=== PATIENT | female | born 1970 | race Caucasian/White ===

== ENCOUNTER → 2018-05-22 11:48 | Outpatient (CLI) | payer BC, SELFPAY ==
--- NOTE | 2018-05-22 11:56 | XR_ITS ---
XR chest 2V HISTORY: Fall on 05/20. Neck and chest pain. Nonsmoker ITS.REASON: S/P FALL 05/20,NECK PAIN,CHEST WALL PAIN ORDERING PHYSICIAN: Roddy Damon PATIENT AGE: 47 years Technique: PA and lateral chest COMPARISON: 11/09/2016 2 view CXR. FINDINGS: Lungs well expanded clear with no active disease. Some mild hyperexpansion heart, candis, mediastinal structures are satisfactory. Chest wall appears intact satisfactory ribs intact. T-spine intact. No acute findings. No significant change since prior studies. Small calcified granuloma less than 5 mm size anterior second interspace with small calcified hilar nodes right more so than left. No significant lung nodules. Normal pulmonary vascularity. . IMPRESSION stable chest. Lungs clear. Nothing definitely acute. .
--- NOTE | 2018-05-22 11:56 | XR_ITS ---
XR cervical spine 4V Ordering Physician: Roddy Damon Patient Age: 47 years: Female HISTORY: ITS.REASON: S/P FALL 05/20,NECK PAIN,CHEST WALL PAIN fall May 20 with anterior with neck pain and chest pain. TECHNIQUE: Five-view cervical spine series COMPARISON :. No previous relevant studies. FINDINGS Cervical spine intact with no fracture nor subluxation. Normal alignment. Prevertebral soft tissues appear normal. Open-mouth view show normal C1-C2 relationships... Dens intact Vertebral bodies intact and disc spaces are well-maintained. The neural foramen widely patent. Facets appear satisfactory. Small rudimentary cervical ribs at C7 noted bilateral. Measure only 12 mm on right & 11 mm on left. Apices the lungs are clear with onlyTrace apical pleural scarring on right. IMPRESSION: Cervical spine intact with no fracture nor subluxation. Normal alignment. Vertebral bodies and disc spaces well-maintained.. .
== END ==
PROVIDERS: PCP Internal Medicine; Visit Provider Internal Medicine
DX: M54.2 Cervicalgia (principal); R07.89 Other chest pain
CPT/HCPCS: 71046; 72050

== ENCOUNTER → 2018-06-23 15:39 | Outpatient (CLI) | payer BC, SELFPAY ==
--- NOTE | 2018-06-23 15:49 | MM_ITS ---
MM Dig screening mamm BI w/CAD CAD Screening COMPARISON: Digital mammograms with CAD 04/07/2017 and 02/18/2016 INDICATION: There is no personal or family history of breast cancer. There has been a previous cyst aspiration right breast. TECHNIQUE: Standard CC and MLO images were obtained. R2 CAD reviewed. FINDINGS: There is a markedly and diffusely dense and heterogenic parenchymal pattern definitely lessening the sensitivity of mammography. A dominant cystic structure in the subareolar region of the right breast seen on last years exam has somewhat decreased in size. There is no definite new or suspicious lesion in either breast and there are no suspicious microcalcifications. . Ultrasound performed at the same time as the previous mammogram showed multiple cystic structures in both breasts. There are few scattered benign-appearing microcalcifications in each breast. IMPRESSION: Markedly dense and heterogenic parenchymal pattern basically stable and unchanged from the previous exam BI-RADS Category: 2 Benign Finding(s) RECOMMENDED FOLLOW-UP: 1YR - 1 YEAR FOLLOW-UP (A letter has been sent to the patient regarding results of the study.)
--- NOTE | 2018-06-23 15:50 | US_ITS ---
US breast RT complete INDICATION: Follow-up breast cyst, one year follow-up dense breast on mammography ORDERING PHYSICIAN: Roddy Damon PATIENT AGE: 47 years COMPARISON: 04/07/2017 TECHNIQUE: Right breast ultrasound with axilla FINDINGS: There is a 15 x 10 mm cyst at 9:00 near the nipple. This previously measured 23 x 15 mm 16 x 12 mm cyst at 10:00 near the nipple which previously measured 25 x 9 mm. The 7 mm cyst at 11:00 previously 9 mm. An additional 6 mm cyst is present at 11:00. 12:00 there is a bilobular cyst at 1 cm not readily identified on the previous exam. No suspicious breast lesions are evident. Small nodes are present in the axilla IMPRESSION: Multiple breast cysts as described above BI-RADS Category: 2 Benign Finding(s) RECOMMENDED FOLLOW-UP: 1YR - 1 YEAR FOLLOW-UP (A letter has been sent to the patient regarding results of the study.)
--- NOTE | 2018-06-23 15:50 | US_ITS ---
US breast LT complete INDICATION: Follow-up breast cysts, one year follow-up with dense breast tissue mammographically ORDERING PHYSICIAN: Roddy Damon PATIENT AGE: 47 years COMPARISON: 04/07/2017 TECHNIQUE: Left breast ultrasound with axilla FINDINGS: There are multiple left breast cysts including an 8 mm cyst at 12:00 and a 12 mm cyst at 12:00, 6 mm cyst at 1:00, 10 mm cyst at 2:00, 33 x 14 mm septated cyst at 3:00. Previously this measured 22 mm. 20 x 12 mm cyst also at 3:00 previously measuring 22 x 18 mm 10 mm cyst at 4:00. A cluster of cysts or noted at 9:00 measuring a total of 35 x 9 mm. 9 mm cyst at 11:00. 14 mm cyst in the retroareolar region not identified on the previous exam. No suspicious solid nodules. IMPRESSION: Benign findings. Multiple left breast cysts as described above BI-RADS Category: 2 Benign Finding(s) RECOMMENDED FOLLOW-UP: 1YR - 1 YEAR FOLLOW-UP (A letter has been sent to the patient regarding results of the study.)
== END ==
PROVIDERS: PCP Internal Medicine; Visit Provider Internal Medicine
DX: Z12.31 Encounter for screening mammogram for malignant neoplasm of breast (principal); N60.01 Solitary cyst of right breast; N60.02 Solitary cyst of left breast
CPT/HCPCS: 76641; 77067

== ENCOUNTER → 2020-01-18 10:59 | Outpatient (CLI) | payer BC, SELFPAY ==
[2020-01-18 14:24] LABS: Coronavirus 19 IgG Antibody Negative (Negative); Coronavirus 19 IgM Antibody Negative (Negative)
== END ==
PROVIDERS: Visit Provider Internal Medicine Gastroenterology
DX: Z01.818 Encounter for other preprocedural examination (principal)
CPT/HCPCS: 36415; 86328

== ENCOUNTER 2020-01-21 10:30 | Day surgery (SDC) | payer BC, SELFPAY ==
[2020-01-16 13:11] VITALS: BMI 25.0
[2020-01-21 10:55] VITALS: BP 113/66; PULSE 77; RESP 18; TEMP 37.1; O2SAT 98
[2020-01-21 11:58] LABS: Urine Pregnancy, HCG Qual. Negative (Negative)
[2020-01-21 12:17] VITALS: O2SAT 98
--- NOTE | 2020-01-21 12:37 | P.PCN_ITS ---
[facility] Procedure Note Procedure Note:: Upper Endoscopy Procedure Report: Esophagogastroduodenoscopy with cold biopsies Endoscopost: Dominick Hernandez II, MD Referring Physician: Roddy Damon MD Date of Procedure: January 21, 2020 Equipment: Olympus GIF 180 standard upper endoscope Sedation: MAC sedation Indications: Mrs. Velez is a 49-year-old female who has had dyspepsia with epigastric abdominal discomfort and tightness with some bloating and gassiness. She reports a knotted up upper left side with rolling and tenderness. She states that this may occur more on an empty stomach. This especially occurs overnight. She did have cholecystectomy 30 years ago ([facility]). She reports nausea. She reports no early satiety or dysphagia. She does state that omeprazole and Carafate are not helping much. She does feel that stress may exacerbate her symptoms. She does report some bowel irregularity with constipation that alternates with loose/soft stools. She has some obstipation. This is her first upper endoscopy. Procedure: Prior to the procedure, a history and physical exam was performed, and patient's medications and allergies were reviewed. The risks, benefits and alternatives of the sedation and procedure were discussed with the patient. All questions were answered and informed consent was obtained. The patient was brought to the procedure room. Patient identification and proposed procedure were verified by the physician and the nurse. The patient was placed in a left lateral decubitus position and the scope was passed under direct vision. Throughout the procedure, the patient's blood pressure, pulse, and oxygen saturations were monitored continuously. The upper GI endoscopy was accomplished without difficulty. The patient tolerated the procedure well. Findings: The scope was passed directly into the upper esophagus and advanced to the third portion of the duodenum. The post bulbar duodenum and duodenal bulb were normal with normal mucosa and conniventes. Cold biopsies were taken from the post bulbar duodenum and duodenal bulb to rule out celiac disease. The scope was withdrawn through a normal duodenal bulb and pylorus into the stomach. There was evidence of linear erythema of the antrum and body consistent with linear reactive gastropathy. The remainder of the antrum, body and fundus of the stomach were grossly normal. Upon retroflexion there was no hiatal hernia. 2 biopsies were taken in the antrum and along the lesser curvature for histology to rule out gastritis and/or H pylori. The scope was then withdrawn into the esophagus. There was no evidence of reflux esophagitis or Colon's. A biopsy was taken at the GE junction to rule out intestinal metaplasia. The remainder of the esophageal mucosa was normal. Impression: 1. Nonerosive GERD 2. Linear reactive gastropathy Plan: I do feel that the patient has functional dyspepsia and some functional bowel disease. We will discuss dietary measures and treatment options. I would recommend colonoscopy as well.
[2020-01-21 12:40] VITALS: BP 113/81; PULSE 83; RESP 18; TEMP 36.3; O2SAT 96
[2020-01-21 12:50] VITALS: BP 107/73; PULSE 77; RESP 18; O2SAT 97
[2020-01-21 13:01] VITALS: BP 110/72; PULSE 62; RESP 18; O2SAT 100
[2020-01-21 13:44] VITALS: BP 125/89; PULSE 71; RESP 18; O2SAT 100
== END 2020-01-21 13:44 | disposition home or self-care (01) ==
LOC: OUTP 10:31
PROVIDERS: PCP Internal Medicine; Visit Provider Internal Medicine Gastroenterology
PROC: 0DJ08ZZ Inspection of Upper Intestinal Tract, Via Natural or Artificial Opening Endoscopic (ICD-10-PCS; CPT 43235; principal; 2020-01-21 11:30)
DX: K21.9 Gastro-esophageal reflux disease without esophagitis (principal); K31.9 Disease of stomach and duodenum, unspecified
CPT/HCPCS: 43239; 81025

== ENCOUNTER → 2020-03-27 10:55 | Outpatient (CLI) | payer BC, SELFPAY ==
[2020-03-27 12:40] LABS: Coronavirus 19 IgG Antibody Negative (Negative); Coronavirus 19 IgM Antibody Negative (Negative)
== END ==
PROVIDERS: Visit Provider Internal Medicine Gastroenterology
DX: Z01.89 Encounter for other specified special examinations (principal); Z12.11 Encounter for screening for malignant neoplasm of colon
CPT/HCPCS: 36415; 86328

== ENCOUNTER 2020-03-28 07:28 | Day surgery (SDC) | payer BC, SELFPAY ==
[2020-03-20 10:08] VITALS: BMI 23.5
[2020-03-28] VITALS (8 sets, daily range): BP systolic 100–116; BP diastolic 59–84; PULSE 62–103; RESP 16–18; TEMP 36.6–36.7; O2SAT 97–100
[2020-03-28 07:56] LABS: HCG Qualitative, Serum Negative (Negative)
--- NOTE | 2020-03-28 08:04 | P.PN_ITS ---
[facility] Anesthesia Checklist - Patient Identification Patient Identification: Arm Band - Structural Data Admitted From: Home Planned Operative Procedure/s: colonoscopy Consent for Planned Operative Procedure(s) Verified: Yes Verified Documents: Surgical Consent, History and Physical - NPO Status Verified Time NPO: 00:00 - Additional verifications Anesthesia Reactions: No - Airway Assessment C-Spine Mobility Assessed: Yes (mp2) TMJ Mobility Assessed: Yes Dentition: Good Dentition - Neurological Assessment Level of Consciousness: Awake, Alert - Anesthesia Plan Anesthesia Risk discussed: Yes Anesthesia Plan: Verified ASA Class: II Anesthesia Type: MAC [facility] History I have reviewed the patient's past medical history: Yes Medical History: Reports:: Asthma, Gastroesophageal Reflux Disease(GERD), Renal Disease (polycystic kidney disease) Denies:: Cancer, Diabetes Mellitus Type 1, Diabetes Mellitus Type 2, Internal Pacemaker, MRSA, Seizures *Have you ever received a pneumonia vaccine?: Yes *Have you received a flu vaccine this season?: Yes Other Medical History: Reports: Anemia (hx of) Anesthesia experience/problems:: nac Laterality Cases: Bilateral: Tonsillectomy Other Surgeries: Yes: Cholecystectomy, , Tubal Ligation. No: Pacemaker Amputation: No - *Social History Last grade of school completed: Advanced degree Alcohol Intake: never Substance Use Type: denies use *Occupational Status:: employed Housing: house Household Members: spouse *Travel in the last 8 weeks: None Family Hx:: No significant family history
--- NOTE | 2020-03-28 08:07 | P.PCN_ITS ---
[facility] Procedure Note Procedure Note:: Colonoscopy Procedure Report: Colonoscopy with cold snare polypectomy Endoscopist: Dominick Hernandez II, MD Referring physician: Roddy Damon MD Date of Procedure: March 28, 2020 Equipment: Olympus 180 variable stiffness pediatric colonoscope Sedation: MAC sedation Indication: Mrs. Velez is a 49-year-old female who is here for screening colonoscopy. The patient previously was having mid upper abdominal discomfort, tightness and bloating especially in the left upper side. She had gallbladder removal 30 years ago. She was having nausea. The patient did have an EGD on January 21, 2020 that showed nonerosive GERD and linear reactive gastropathy. The patient has been on MiraLAX plus Konsyl (fiber bowel regimen) and buspirone. Most of her symptoms have resolved and she is doing better. She still has some nausea. She reports no rectal bleeding, abdominal pain, weight loss or change in bowel habits. She reports no family history of colon cancer. This is her first colonoscopy. Procedure: Prior to the procedure, a history and physical exam was performed, and patient's medications and allergies were reviewed. The risks, benefits and alternatives of the sedation and procedure were discussed with the patient. All questions were answered and informed consent was obtained. The patient was brought to the procedure room. Patient identification and proposed procedure were verified by the physician and the nurse. The patient was placed in a left lateral decubitus position and the scope was passed under direct vision. Throughout the procedure, the patient's blood pressure, pulse, and oxygen saturations were monitored continuously. The colonoscopy was accomplished without difficulty. The patient tolerated the procedure well. Findings: On digital rectal examination there was normal rectal tone. There were no external hemorrhoids. The colonoscope was introduced through the anal canal to the rectum and advanced to the cecum. The ileocecal valve and appendiceal orifice were identified. The scope was advanced a short distance into the ileum which appeared grossly normal. The scope was then withdrawn into the colon. There were 3 diminutive colon polyps (cecum x2 (3 and 4 mm) and sigmoid x1 (3 mm)) which were all removed via cold snare polypectomy. The remaining cecum, as cending, transverse, descending, sigmoid and rectum were grossly normal. There were no other mucosal abnormalities identified. Upon retroflexion within the rectum there were grade 1 internal hemorrhoids.The preparation was excellent throughout with [place] Preparation Score of 9. The cecal time was 12 minutes. Impression: 1. Diminutive colonic polyps x3 2. Grade 1 internal hemorrhoids Plan: I will follow up the polyp pathology and recommend repeat colonoscopy again in 5-10 years based upon the polyp histology. I would encourage fiber supplementation on a long-term daily maintenance basis.
== END 2020-03-28 10:00 | disposition home or self-care (01) ==
LOC: OUTP 07:28
PROVIDERS: PCP Internal Medicine; Visit Provider Internal Medicine Gastroenterology
PROC: 0DJD8ZZ Inspection of Lower Intestinal Tract, Via Natural or Artificial Opening Endoscopic (ICD-10-PCS; CPT 45378; principal; 2020-03-28 08:00)
DX: Z12.11 Encounter for screening for malignant neoplasm of colon (principal); K63.5 Polyp of colon; K64.0 First degree hemorrhoids; Z90.49 Acquired absence of other specified parts of digestive tract; K21.9 Gastro-esophageal reflux disease without esophagitis; K31.9 Disease of stomach and duodenum, unspecified; J45.909 Unspecified asthma, uncomplicated; N28.9 Disorder of kidney and ureter, unspecified; Z88.0 Allergy status to penicillin; Z79.890 Hormone replacement therapy; Z79.899 Other long term (current) drug therapy
CPT/HCPCS: 45385; 84703

== ENCOUNTER 2020-05-03 10:10 | Emergency (ER) | payer BC, SELFPAY ==
[2020-05-03 10:26] VITALS: BP 139/89; PULSE 100; RESP 18; O2SAT 100; BMI 23.5
--- NOTE | 2020-05-03 10:33 | HMH.EDUTC ---
[facility] [place] Disposition Clinical Impression: Encounter for laboratory testing for COVID-19 virus Sinusitis Qualifiers: Sinusitis location: unspecified location Chronicity: unspecified Qualified Code(s): J32.9 - Chronic sinusitis, unspecified Disposition: Home, Self-Care Condition on Discharge: Good Instructions: Sinusitis, Sinus Headache, DI for Sinusitis Additional Instructions: *Monitor Temp, Over the counter Motrin or Tylenol as directed/as needed Tylenol every 4 hours and Motrin every 6 hours (as long as your family doctor has told you that you can take it) for fever or pain. and straight to ER if unable to lower temp less than 101.0 after medication given *Warm salt water gargles may help to soothe the throat *Throat Lozenges *Warm fluids like tea with honey may help to soothe the throat *Sleep elevated *Humidifier/Vaporizer *Flonase 2 sprays in each nostril daily but be aware that it may take 2-3 days before you notice improvement Follow up IMMEDIATELY for new or worsening symptoms or no Noticeable improvement over the next 48-72 hours. 911 for difficulty breathing or swallowing You was tested for today for COVID19 your test result should be back in the next 24-48 hours, you may call to the [facility] tomorrow to see if your test results are back and the result [phone] You was given a handout with instructions for Self Quarantine and Self isolation for while you wait on test results and what to do if they are positive If you are positive the Health Dept will be contacting you also Prescriptions: Azithromycin [Z-Devyn 250mg Tab] 250 mg PO DIRECTED #6 tab Transmission Status: Pending to [facility] Ondansetron [Zofran 4mg ODT] 4 mg PO TIDP PRN #9 tab PRN Reason: Nausea Transmission Status: P[facility] to [facility] Referrals: Roddy Damon [Primary Care Provider] - Forms: Work/School Release Time of Disposition: 10:41 Medical Decision Making - Huber Inquiry Pt receiving controlled substance: No Huber was queried for this patient: No Vital Signs: 05/03/20 10:26 Pulse Rate [Radial] 100 H Respiratory Rate 18 Blood Pressure [Right Arm] 139/89 Blood Pressure Mean [Right Arm] 105 Blood Pressure Source [Right Arm] Automatic Cuff Blood Pressure Position [Right Arm] Sitting 02 Sat by Pulse Oximetry 100 Oxygen Delivery Method Room Air Orders (Tests/Meds): ORDERS Category Date Time Status Covid-19 Nasal PCR ([facility]) Routine Lab 05/03/20 10:25 Received [facility] [place] HPI - General Stated complaint: covid test Time Seen by Provider: 05/03/20 10:33 Mode of Arrival: Ambulatory Source of Information: Patient Limitations: No Limitations Description of Symptoms (Recalled from Triage Doc. 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] Tramadol HCl [Tramadol 50mg 50 mg PO BID 01/16/20 03/20/20 Tab] ondansetron HCL [Zofran 4mg Tab*] 4 mg PO DAILY PRN 01/16/20 03/20/20 Buspirone HCl [Buspar 5mg tablet] 5 mg PO HS 03/20/20 03/20/20 Previous Rx's Medication Instructions Recorded Azithromycin [Z-Devyn 250mg Tab] 250 mg PO DIRECTED #6 tab 05/03/20 Ondansetron [Zofran 4mg ODT] 4 mg PO TIDP PRN #9 tab 05/03/20 Allergies Allergy/AdvReac Type Severity Reaction Status Date / T
[2020-05-03 10:45] VITALS: BP 139/89; PULSE 100; RESP 18; TEMP 36.7; O2SAT 100
== END 2020-05-03 10:48 | disposition home or self-care (01) ==
PROVIDERS: Emergency Provider Nurse Practitioner; PCP Internal Medicine
DX: Z20.828 Contact with and (suspected) exposure to other viral communicable diseases (principal); J32.9 Chronic sinusitis, unspecified; K21.9 Gastro-esophageal reflux disease without esophagitis; J45.909 Unspecified asthma, uncomplicated; Z90.49 Acquired absence of other specified parts of digestive tract
CPT/HCPCS: 99201; U0003

== ENCOUNTER 2020-05-11 18:34 | Emergency (ER) | payer BC, SELFPAY ==
[2020-05-11 19:16] VITALS: BP 106/79; PULSE 94; RESP 20; TEMP 37.2; O2SAT 96; BMI 25.0
[2020-05-11 19:25] LABS: UTC Influenza A Antigen Positive (Negative); UTC Influenza B Antigen Negative (Negative); UTC Strep Screen (Rapid) Negative (Negative)
--- NOTE | 2020-05-11 19:33 | HMH.EDUTC ---
[facility] Clinical Impression: Influenza A Disposition: Home, Self-Care Condition on Discharge: Good Instructions: Influenza, DI for Influenza -- Adult, Oseltamivir Additional Instructions: Drink plenty of fluids. Take tylenol for pain or fever. Return if you begin to have difficulty breathing. Follow up with your regular doctor. GO TO THE ER FOR ANY WORSENING SYMPTOMS Prescriptions: Ondansetron [Zofran 4mg ODT] 4 mg PO Q8HP PRN #20 tab.rapdis PRN Reason: Nausea Transmission Status: [facility] to [facility] Oseltamivir Phosphate [Tamiflu 75mg Capsule] 75 mg PO BID #10 cap Transmission Status: Pending to [facility] Referrals: Roddy Damon [Primary Care Provider] - Time of Disposition: 19:35 Medical Decision Making - Medical Records Medical records reviewed: No: I reviewed the patient's medical records. - Huber Inquiry Pt receiving controlled substance: No Vital Signs: 05/11/20 19:16 Temperature 98.9 F Temperature Source Oral Pulse Rate [Right Brachial] 94 H Respiratory Rate 20 Blood Pressure [Right Arm] 106/79 L Blood Pressure Mean [Right Arm] 88 Blood Pressure Source [Right Arm] Automatic Cuff Blood Pressure Position [Right Arm] Sitting 02 Sat by Pulse Oximetry 96 Oxygen Delivery Method Room Air - Lab Data Lab results reviewed: Yes: I reviewed the patient's lab results. Lab Results 05/11/20 19:23: Influenza Type A Ag Positive A, Influenza Type B Ag Negative 05/11/20 19:23: Strep Scn Rapid Clinic Negative Orders (Tests/Meds): ORDERS Category Date Time Status Strep Screen Confirmation Stat Micro 05/11/20 19:23 [place] [facility] [place] - General Stated complaint: Headaces, sore thorat, chills, Time Seen by Provider: 05/11/20 19:33 Mode of Arrival: Ambulatory Source of Information: Patient Limitations: No Limitations Description of Symptoms (Recalled from Triage Doc. by RN): PATIENT C/O BODY ACHES, CHILLS, HEADACHE, SCRATCHY THROAT, DRY COUGH. STATES SHE WAS SEEN IN [facility] LAST TUESDAY AND WAS GIVEN A Z-PACK; SHE FELT BETTER A FEW DAYS AFTER SHE STARTED THE Z-PACK BUT STATES HER SYMPTOMS RETURNED YESTERDAY HEENT Symptoms (Recalled from RN notes): No Resp Symptoms (Recalled from RN notes): No Skin Symptoms (Recalled from RN notes): No MS Symptoms (Recalled from RN notes): No Functional Status (Recalled from RN notes): WNL - History of Present Illness Provider Complaint: She states that since yesterday she has had body aches, cough, mild chest tightness, and felt very bad. She was sick last week but she got completely better until this episode started. She did have a flu shot this year. - Related Data Home Medications Medication Instructions Recorded Confirmed Tramadol HCl [Tramadol 50mg 50 mg PO BID 01/16/20 05/11/20 Tab] Previous Rx's Medication Instructions Recorded Ondansetron [Zofran 4mg ODT] 4 mg PO TIDP PRN #9 tab 05/03/20 Ondansetron [Zofran 4mg ODT] 4 mg PO Q8HP PRN #20 tab.rapdis 05/11/20 Oseltamivir Phosphate [Tamiflu 75 mg PO BID #10 cap 05/11/20 75mg Capsule] Allergies Allergy/AdvReac Type Severity Reaction Status Date / Time Penicillins Allergy Verified 03/20/20 10:02 - Worker's Comp Is this a Worker's Comp case?: No [facility] History - Hepatitis A Screen Drug use history?: No High risk sexual behaviors?: No History of sexually transmitted infection?: No Currently employed?: No Childcare worker?: No Do you have indoor plumbing?: Yes Do you have electricity?: Yes Attestation statement:: This patient has been screened for Hepatitis A risk factors. I have reviewed the patient's past medical history: Yes Medical History: Reports:: Asthma, Gastroesophageal Reflux Disease(GERD), Renal Disease (polycystic kidney disease) Denies:: Cancer, Diabetes Mellitus Type 1, Diabetes Mellitus Type 2, Internal Pacemaker, MRSA, Seizures Other Medical History: Reports: Anemia (hx of) Latera
[2020-05-11 19:55] VITALS: BP 106/79; PULSE 94; RESP 20; TEMP 37.2; O2SAT 96
[2020-05-13 13:21] LABS: Covid-19 Nasal PCR Sendout Lex Positive
--- NOTE | 2020-05-13 13:55 | PC.NURSE ---
PT CALLED AND NOTIFIED OF POSITIVE COVID RESULT
== END 2020-05-11 20:00 | disposition home or self-care (01) ==
PROVIDERS: Emergency Provider Nurse Practitioner Family; PCP Internal Medicine
DX: U07.1 COVID-19 (principal); J10.1 Influenza due to other identified influenza virus with other respiratory manifestations; J45.909 Unspecified asthma, uncomplicated; K21.9 Gastro-esophageal reflux disease without esophagitis; Z90.49 Acquired absence of other specified parts of digestive tract; Z79.899 Other long term (current) drug therapy
CPT/HCPCS: 87804; 87880; 99202; U0004

== ENCOUNTER → 2020-07-11 10:59 | Outpatient (CLI) | payer BC, SELFPAY ==
--- NOTE | 2020-07-11 11:06 | XR_ITS ---
PROCEDURE: XR CHEST 2V CLINICAL HISTORY: PALPATATIONS, EXTREME FATIQUE, COUGH, HX OF COVID 19 COMPARISON: CR CXR CHEST(2 VIEWS-NOT PORTABLE) from 03/19/2015 CR CXR CHEST(2 VIEWS-NOT PORTABLE) from 11/09/2016 CR CXR2V XR chest 2V from 05/22/2018 FINDINGS: The cardiomediastinal silhouette and pulmonary vascularity are within normal limits. The lungs are clear without infiltrates, suspicious nodules, or pleural effusions. No acute bony abnormalities. IMPRESSION: No acute findings. Dictated by: Abdiel Benson MD 07/11/2020 11:21 Abdiel Benson MD in [place] 07/11/2020 11:21
[2020-07-11 11:59] LABS: Basophils % 0.9 % (0.1-2.0); Eosinophils % 0.6 % (0.1-12.0); Hematocrit 41.6 % (37.0-47.0); Hemoglobin 13.4 g/dL (12.2-16.2); Lymphocytes # 0.8 K/mm3 (0.7-4.5); Lymphocytes % 20.3 % (10-50); Mean Corpuscular HGB Conc 32.3 g/dL (31.8-35.4); Mean Corpuscular Hemoglobin 29.1 pg (27.0-31.2); Mean Corpuscular Volume 89.9 fl (81-99); Mean Platelet Volume 7.8 fl (7.4-10.4); Monocytes # 0.5 K/mm3 (0.1-1.0); Monocytes % 11.5 % (1.7-9.3); Neutrophils # 2.7 K/mm3 (1.8-7.8); Neutrophils % 66.7 % (37.0-80.0); Platelet Count 265 K/mm3 (142-424); Red Blood Count 4.62 M/mm3 (4.20-5.40); Red Cell Distribution Width 14.1 % (11.5-17.5)
--- NOTE | 2020-07-11 12:00 | ECG_ITS ---
APPROVED REPORT Exam: Resting ECG HR:81 bpm ECG Measurements Heart Rate 81 AXES HI 146 P 54 QRSd 70 QRS 39 QT 366 T 50 QTc 425 Conclusion Normal sinus rhythm Normal ECG Electronically signed by : Roddy Damon, 07/15/2020 13:44:51
[2020-07-11 12:08] LABS: Alanine Aminotransferase 55 U/L (12-78); Albumin Level 4.6 g/dl (3.5-5.0); Albumin/Globulin Ratio 1.4 (1.1-1.8); Alkaline Phosphatase 68 U/L (38-126); Anion Gap 11.6 mEq/L (5-15); Aspartate Amino Transferase 60 U/L (14-36); Bilirubin,Total 0.2 mg/dl (0.2-1.3); Blood Urea Nitrogen 6 mg/dl (7-17); Calcium 9.7 mg/dl (8.4-10.2); Carbon Dioxide 31 mmol/L (22.0-30.0); Chloride 97 mmol/L (98-107); Estimated Glomerular Filt Rate 107 ml/min (>60); GFR (African American) 129 ML/MIN (>60); Globulin 3.4 g/dL (1.3-3.2); Glucose 105 mg/dl (74-100); Potassium 4.6 mmoL/L (3.5-5.1); Sodium 135 mmol/L (136-145)
[2020-07-11 12:14] LABS: D-Dimer 1.03 ug/mL (0.0-0.5)
[2020-07-11 12:25] LABS: Erythrocyte Sedimentation Rate 24 mm/hr (0-20)
[2020-07-11 12:34] LABS: Free T4 (Free Thyroxine) 0.77 ng/dl (0.78-2.19)
[2020-07-11 12:41] LABS: Thyroid Stimulating Hormone 0.85 uIU/mL (0.465-4.68)
== END ==
PROVIDERS: PCP Internal Medicine; Visit Provider Internal Medicine
DX: R00.2 Palpitations (principal); R53.83 Other fatigue; R05 Cough; Z86.16 Personal history of COVID-19
CPT/HCPCS: 36415; 71046; 80053; 84439; 84443; 85025; 85378; 85651; 93005; 93225; 93226

== ENCOUNTER → 2020-07-15 10:55 | Outpatient (CLI) | payer BC, SELFPAY ==
--- NOTE | 2020-07-15 | CA_ITS ---
APPROVED REPORT EXAM: Comprehensive 2D, Doppler, and color-flow Echocardiogram Zipper Cutter: Vidhi Malone CRT Ht: 5 ft 7 in Wt: 160lbs BSA: 1.84 BP: 106/79 mmHg Indications: Covid 19 in Nov heart pounding and SOB and fatigue since then. Palpitations, Fatigue, GERD, Asthma 2D Dimensions LVOT 1.93 cm (M/F) 1.5-2.5 LVEF (Garcia's) 54.70 % LV Volume 86.80 mL M-Mode Dimensions RVDd 2.67 cm (0.9-2.6) LA Diam 2.87 cm (1.9-4.0) LVDd 4.34 cm (3.5-5.7) Ao Diam 3.57 cm (2.0-3.7) LVDs 2.95 cm (3.5-5.7) IVSd 1.25 cm (0.6-1.1) PWd 0.83 cm (0.6-1.1) EF (Teich) 60.40% FS 32.00% EDV (Teich) 84.90 mL ESV (Teich) 33.60 mL LV Diastology E Decel Time 263.00 (160-240 msec) E/A Ratio 1.16 MED E' 9.90 (< 7 cm/sec) MED A' 8.20 cm/s E'/MED E' Ratio 8.86 (>14) LAT E' 12.90 (<10 cm/sec) LAT A' 11.20 cm/s E/LAT E' Ratio 6.80 (>14) Aortic Valve AO Peak GR. 3.50 mmHg Mitral Valve MV E Max Kvng. 88.00 (40-130 cm/s) MV A Velocity 75.00 (40-130 cm/s) E/A Ratio 1.16 MV Decel. Time 263.00 (160-240 ms) MV PHT 77.00 ms Pulmonary Valve PV Peak Velocity 71.00 (50-150 cm/s) Tricuspid Valve TR P. Velocity 190.00 cm/s RAP Estimate 10.00 mmHg RVSP 24.40 mmHg Left Ventricle Left atrium is normal size, left ventricle is normal size, there is no concentric left ventricular hypertrophy, visually estimated ejection fraction 55% with no regional wall motion abnormality, diastolic parameters are within normal range. Right Ventricle Right atrium and right ventricle are normal size and contractility. Aortic Valve Aortic valve is grossly normal, there is no aortic stenosis or aortic insufficiency. Mitral Valve Mitral valve is grossly normal, there is no mitral stenosis, there is trace mitral regurgitation. Tricuspid Valve Tricuspid valve grossly normal, there is trace tricuspid regurgitation, tricuspid regurgitation jet velocity is inadequate for calculation of the right ventricular systolic pressure. Pulmonic Valve Pulmonic valve is poorly visualized. Great Vessels Aortic root is normal size. Pericardium No significant pericardial effusion noted. Conclusion 1. Normal left ventricular size, preserved left ventricular systolic function, visually estimated ejection fraction 55% with no regional wall motion abnormality, diastolic parameters are within normal range. 2. Trace mitral and tricuspid regurgitation. 3. No significant pericardial effusion noted. Electronically signed by : Silviano Stark, 07/15/2020 20:21:47
--- NOTE | 2020-07-15 11:46 | CT_ITS ---
PROCEDURE: CT ANGIO CHEST CLINCIAL INDICATION: CHEST PAIN, EXTREME FATIGUE Covid+ May 11, 2020 Continued fatigue, soa, palpitations COMPARISON: CR XR CHEST 2V from 07/11/2020 TECHNIQUE: IV Contrast: 70ML Isovue 370 Axial images obtained with sagittal and coronal reformats. All CT scans at the facility use one or more dose reduction, viz: automated exposure control, ma/kV adjustment per patient size (including targeted exams where dose is matched to indication, i.e. head), or iterative reconstruction technique. FINDINGS: HEART AND MEDIASTINAL STRUCTURES: No evidence of pulmonary embolus, aortic aneurysm, or aortic dissection. LUNGS AND PLEURAL SPACES: There is evidence of old granulomatous disease. There are few faint 3 mm nodules in both upper lobes. These are ill-defined. In addition, there is mild biapical scarring. A 6 mm nodules present in the right apex posteriorly and a 4 mm nodule in the right apex along with apical scarring. There is a 3 mm nodule in the right perihilar region. There is mild bronchial thickening. No effusions or infiltrates. BONY STRUCTURES: No acute bony abnormalities apparent. UPPER ABDOMEN: Several small hypodensities are present within the liver and may be due to small hepatic cyst. There is a small left renal cyst at 1.5 cm and an additional left renal cyst laterally at 2 cm. ADDITIONAL FINDINGS: No other significant abnormalities. IMPRESSION: 1. No evidence of pulmonary embolus, aortic aneurysm, or aortic dissection. 2. There are nonspecific small ill-defined nodular opacities in the lung apices. These may be inflammatory or infectious. 3. In addition there is some mild biapical scarring with 2 right apical nodules in 1 right perihilar nodule. Consider 3-6 month follow-up to confirm stability. 4. Hepatic and left renal cysts Dictated by: Abdiel Benson MD 07/16/2020 14:57 Abdiel Benson MD in [place] 07/16/2020 14:57
== END ==
PROVIDERS: PCP Internal Medicine; Visit Provider Internal Medicine
DX: R07.9 Chest pain, unspecified (principal); R00.2 Palpitations; R53.83 Other fatigue
CPT/HCPCS: 71275; 93306; Q9967

== ENCOUNTER 2020-10-18 21:42 | Emergency (ER) | payer BC, SELFPAY ==
[2020-10-18 21:58] VITALS: BP 130/92; PULSE 105; RESP 20; TEMP 36.8; O2SAT 99; BMI 27.2
--- NOTE | 2020-10-18 22:06 | CT_ITS ---
PROCEDURE INFORMATION: Exam: CT Abdomen And Pelvis With Contrast Exam date and time: 10/18/2020 10:06 PM Age: 49 years old Clinical indication: Patient HX: Right hip pain for 1 day TECHNIQUE: Imaging protocol: Computed tomography of the abdomen and pelvis with contrast. Radiation optimization: All CT scans at this facility use at least one of these dose optimization techniques: automated exposure control; mA and/or kV adjustment per patient size (includes targeted exams where dose is matched to clinical indication); or iterative reconstruction. Contrast material: ISOVUE; Contrast volume: 75 ml; Contrast route: IV; COMPARISON: CT HIP RT WO CON 10/18/2020 11:19 PM FINDINGS: Liver: Multiple cystic structures of the liver are present the largest measures 2.2 cm at the inferior aspect of the right hepatic lobe with internal density of 8 Hounsfield units. Gallbladder and bile ducts: There are surgical clips within the gallbladder fossa. CBD measures 7 mm in diameter. Mild biliary intrahepatic biliary dilatation incidentally noted. Pancreas: Normal. No ductal dilation. Spleen: Multiple calcific densities spleen are likely related to prior granulomatous process. Adrenal glands: Normal. No mass. Kidneys and ureters: Multiple renal cysts seen bilaterally largest is at the left renal midpole measuring 1.9 cm in diameter with internal density of 13 Hounsfield units compatible with multiple Bosniak 2 cysts requiring no follow-up. Stomach and bowel: Unremarkable. No obstruction. No mucosal thickening. Appendix: No evidence of appendicitis. Intraperitoneal space: Unremarkable. No free air. No significant fluid collection. Vasculature: Unremarkable. No abdominal aortic aneurysm. Lymph nodes: Unremarkable. No enlarged lymph nodes. Urinary bladder: Unremarkable as visualized. Reproductive: Left-sided tubal ligation clip in expected location. Right-sided tubal ligation clips at the posterior cul-de-sac, not in a functional location. Bones/joints: Moderate size right greater than left marginal osteophytes of the femoral heads compatible with moderate osteoarthrosis of the hips. Soft tissues: Normal. IMPRESSION: Left-sided tubal ligation clip in expected location. Right-sided tubal ligation clip at the posterior cul-de-sac, not in a functional location. 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 COMMENTS: Consistent with the [employer]'s Incidental Findings Committee white paper (J Am Ernesto Radiol 2018): Any incidental renal lesion less than 1 cm or classified as too small to characterize, or any incidental cystic renal lesion characterized as simple-appearing, is likely benign. No follow-up imaging is recommended for these lesions per consensus recommendations based on imaging criteria.
--- NOTE | 2020-10-18 22:06 | CT_ITS ---
PROCEDURE INFORMATION: Exam: CT Lumbar Spine Without Contrast Exam date and time: 10/18/2020 10:06 PM Age: 49 years old Clinical indication: Patient HX: Right hip pain for 1 day TECHNIQUE: Imaging protocol: Computed tomography images of the lumbar spine without contrast. Radiation optimization: All CT scans at this facility use at least one of these dose optimization techniques: automated exposure control; mA and/or kV adjustment per patient size (includes targeted exams where dose is matched to clinical indication); or iterative reconstruction. COMPARISON: No relevant prior studies available. FINDINGS: Vertebrae: L3-L4 broad-based posterior disc protrusion with facet osteophytosis results in mild bilateral neural foraminal stenosis without spinal canal stenosis. L1-L2: No significant disc protrusion. No severe spinal canal stenosis. No significant neural foraminal narrowing. L2-L3: L2-L3 broad-based posterior disc protrusion with mild osteophytosis results in mild bilateral neural foraminal stenosis without spinal canal stenosis. L3-L4: No significant disc protrusion. No severe spinal canal stenosis. No significant neural foraminal narrowing. L4-L5: L4-L5 broad-based posterior disc protrusion results in mild bilateral neural foraminal stenosis without spinal canal stenosis. L5-S1: No significant disc protrusion. No severe spinal canal stenosis. No significant neural foraminal narrowing. Reproductive: Left-sided tubal ligation in good position. Right-sided tubal ligation clip at the posterior cul-de-sac, not in a functional location. Soft tissues: Unremarkable. IMPRESSION: Multilevel discogenic degenerative changes of the lumbar spine resulting in multilevel mild neural foraminal stenosis as described above.
--- NOTE | 2020-10-18 22:06 | CT_ITS ---
PROCEDURE INFORMATION: Exam: CT Right Lower Extremity Without Contrast, Hip Exam date and time: 10/18/2020 10:06 PM Age: 49 years old Clinical indication: Hip; Right; Patient HX: Pain for 1 day TECHNIQUE: Imaging protocol: CT of the Right lower extremity without contrast was performed. Exam focused on the hip. Radiation optimization: All CT scans at this facility use at least one of these dose optimization techniques: automated exposure control; mA and/or kV adjustment per patient size (includes targeted exams where dose is matched to clinical indication); or iterative reconstruction. COMPARISON: No relevant prior studies available. FINDINGS: Bones/joints: Moderate marginal osteophytosis of the femoral head is present. Soft tissues: Normal. IMPRESSION: Moderate right hip osteoarthritis.
[2020-10-18 22:22] LABS: Basophils # 0.1 K/mm3 (0-0.2); Basophils % 0.5 % (0.1-2.0); Eosinophils # 0.1 K/mm3 (0.0-0.4); Eosinophils % 0.9 % (0.1-12.0); Hematocrit 37.5 % (37.0-47.0); Hemoglobin 12.2 g/dL (12.2-16.2); Lymphocytes # 2.4 K/mm3 (0.7-4.5); Lymphocytes % 21.2 % (10-50); Mean Corpuscular HGB Conc 32.5 g/dL (31.8-35.4); Mean Corpuscular Hemoglobin 28.4 pg (27.0-31.2); Mean Corpuscular Volume 87.3 fl (81-99); Mean Platelet Volume 7.3 fl (7.4-10.4); Monocytes # 0.5 K/mm3 (0.1-1.0); Monocytes % 4.7 % (1.7-9.3); Neutrophils # 8.2 K/mm3 (1.8-7.8); Neutrophils % 72.7 % (37.0-80.0); Platelet Count 368 K/mm3 (142-424); Red Blood Count 4.29 M/mm3 (4.20-5.40); Red Cell Distribution Width 13.6 % (11.5-17.5); White Blood Count 11.2 K/mm3 (4.8-10.8)
[2020-10-18 22:30] LABS: Alanine Aminotransferase 53 U/L (12-78); Albumin Level 4.7 g/dl (3.5-5.0); Albumin/Globulin Ratio 1.6 (1.1-1.8); Alkaline Phosphatase 60 U/L (38-126); Anion Gap 10.1 mEq/L (5-15); Aspartate Amino Transferase 62 U/L (14-36); Bilirubin,Total 0.2 mg/dl (0.2-1.3); Blood Urea Nitrogen 14 mg/dl (7-17); Calcium 9.4 mg/dl (8.4-10.2); Carbon Dioxide 30 mmol/L (22.0-30.0); Chloride 101 mmol/L (98-107); Creatinine Clearance Estimated 143 mL/min (50-200); Estimated Glomerular Filt Rate 107 ml/min (>60); GFR (African American) 129 ML/MIN (>60); Globulin 2.9 g/dL (1.3-3.2); Glucose 92 mg/dl (74-100); Potassium 4.1 mmoL/L (3.5-5.1); Sodium 137 mmol/L (136-145); Total Protein,Serum 7.6 g/dl (6.3-8.2)
[2020-10-18 22:35] LABS: C-Reactive Protein 1.3 mg/L (0-4)
[2020-10-18 22:49] LABS: Procalcitonin 0.038 ng/mL (0.0-2.0)
[2020-10-18 22:52] LABS: Erythrocyte Sedimentation Rate 21 mm/hr (0-20)
--- NOTE | 2020-10-18 22:55 | HMH.EDLOEX ---
ED Disposition Clinical Impression: Lumbar radicular pain Bursitis of hip, right Qualifiers: Hip bursitis location: unspecified Qualified Code(s): M70.71 - Other bursitis of hip, right hip Disposition: Home, Self-Care Condition on Discharge: Good Instructions: DI for Hip Pain Additional Instructions: call pcp for follow Prescriptions: predniSONE [Prednisone 20mg Tab] 20 mg PO BID #10 tab Prescription Printed Referrals: Roddy Damon [Primary Care Provider] - - Critical Care Critical Care Time: No Attestation: On 10/18/20, the high probability of a clinically significant, sudden or life threatening deterioration of the following system(s) required my full and direct attention, intervention and personal management. The time I documented below is in addition to time spent performing reported procedures but includes the following listed in this critical care notation. Medical Decision Making - Medical Records Medical records reviewed: Yes: I reviewed the patient's medical records. - Huber Inquiry Pt receiving controlled substance: No Vital Signs: 10/18/20 21:58 Temperature 98.3 F Temperature Source Oral Pulse Rate [Right] 105 H Respiratory Rate 20 Blood Pressure [Right Arm] 130/92 H Blood Pressure Mean [Right Arm] 104 Blood Pressure Source [Right Arm] Automatic Cuff Blood Pressure Position [Right Arm] Sitting 02 Sat by Pulse Oximetry 99 Oxygen Delivery Method Room Air - Lab Data Lab results reviewed: Yes: I reviewed the patient's lab results. Lab Results 10/18/20 22:08: WBC 11.2 H, RBC 4.29, Hgb 12.2, Hct 37.5, MCV 87.3, MCH 28.4, MCHC 32.5, RDW 13.6, Plt Count 368, MPV 7.3 L, Neut % (Auto) 72.7, Lymph % (Auto) 21.2, Sharp % (Auto) 4.7, Eos % (Auto) 0.9, Baso % (Auto) 0.5, Neut # (Auto) 8.2 H, Lymph # (Auto) 2.4, Sharp # (Auto) 0.5, Eos # (Auto) 0.1, Baso # (Auto) 0.1, ESR 21 H 10/18/20 22:08: Sodium 137, Potassium 4.1, Chloride 101, Carbon Dioxide 30, Anion Gap 10.1, BUN 14, Creatinine 0.60, Estimated Creat Clear 143, Estimated GFR 107, Est GFR ( Amer) 129, Glucose 92, Calcium 9.4, Total Bilirubin 0.2, AST 62 H, ALT 53, Alkaline Phosphatase 60, C-Reactive Protein 1.3, Total Protein 7.6, Albumin 4.7, Globulin 2.9, Albumin/Globulin Ratio 1.6, Procalcitonin 0.038 Result diagrams: 10/18/20 22:08 10/18/20 22:08 Orders (Tests/Meds): ED MEDICATIONS Generic Name Dose Route Start Last Admin Trade Name Freq PRN Reason Stop Dose Admin Sodium Chloride 1,000 mls @ 999 mls/hr 10/18/20 22:15 10/18/20 22:06 Sod Chlor 0.9% 1000ml Bag IV 10/18/20 23:15 999 mls/hr .Q1H1M NOEMY Administration Methylprednisolone Sodium Succinate 40 mg 10/19/20 02:00 Methylprednisolone Sod Succ 40mg Vial IV 10/19/20 02:01 ONCE ONE Discontinued Medications Generic Name Dose Route Start Last Admin Trade Name Codyq PRN Reason Stop Dose Admin Hydromorphone HCl 1 mg 10/18/20 22:06 10/18/20 22:06 Hydromorphone 2mg/Ml Syringe IV 10/18/20 22:07 1 mg ONCE ONE Administration Hydromorphone HCl 1 mg 10/19/20 01:08 10/19/20 01:09 Hydromorphone 2mg/Ml Syringe IV 10/19/20 01:09 1 mg ONCE ONE Administration Iopamidol 75 ml 10/18/20 23:50 10/18/20 23:51 Iopamidol-370 (76%);100ml Bottle IV 10/18/20 23:51 75 ml ONCE ONE Administration Ketorolac Tromethamine 30 mg 10/18/20 22:06 10/18/20 22:06 Ketorolac 30mg/Ml Vial IV 10/18/20 22:07 30 mg ONCE ONE Administration Methylprednisolone Sodium Succinate 125 mg 10/18/20 22:06 10/18/20 22:06 Methylprednisolone Sod Succ 125mg Vial IV 10/18/20 22:07 125 mg ONCE ONE Administration Ondansetron HCl 4 mg 10/18/20 22:06 10/18/20 22:06 Ondansetron 4mg/2ml Vial IV 10/18/20 22:07 4 mg ONCE ONE Administration Sodium Chloride 10 ml 10/18/20 23:50 10/18/20 23:51 Sodium Chloride 0.9% 10ml Syr (Rad Only) IV 10/18/20 23:51 10 ml ONCE ONE Administration - CT Data CT Scan: Abdomen, Pelvis,
[2020-10-19 02:32] VITALS: BP 120/71; PULSE 84; RESP 16; TEMP 36.8; O2SAT 99
== END 2020-10-19 02:34 | disposition home or self-care (01) ==
PROVIDERS: Emergency Provider Emergency Medicine; PCP Internal Medicine
DX: M70.71 Other bursitis of hip, right hip (principal); M54.5 Low back pain; K21.9 Gastro-esophageal reflux disease without esophagitis; N28.9 Disorder of kidney and ureter, unspecified; F17.290 Nicotine dependence, other tobacco product, uncomplicated
CPT/HCPCS: 72131; 73700; 74177; 80053; 84145; 85025; 85651; 86140; 96375; 96376; 99282; J2405; Q9967

== ENCOUNTER → 2020-12-05 11:03 | Outpatient (CLI) | payer BC, SELFPAY ==
--- NOTE | 2020-12-05 11:06 | MM_ITS ---
PROCEDURE: MM DIG SCREENING MAMM BI W/CAD Digital Breast Tomosynthesis Included CLINICAL INDICATION: SCREENING COMPARISON: MG [facility]B DIG MAMM-SCREEN SOURAV from 02/18/2016 MG [facility]B DIG MAMM-SCREEN SOURAV W/CAD from 04/07/2017 [facility] MM Dig screening mamm BI w/CAD from 06/23/2018 TECHNIQUE: Standard CC and MLO images and 3D Tomosynthesis was obtained. R2 CAD reviewed. FINDINGS: Breast parenchyma is heterogeneously dense which may lower the sensitivity of mammography. No new dominant mass or indirect evidence of malignancy. Scattered benign-appearing calcifications noted bilaterally. A few small round densities in the outer aspects of both breasts again noted, previously shown to represent cysts by ultrasound. IMPRESSION: Benign bilateral digital screening mammograms. BI-RAD Category: 2 Benign Finding FOLLOW-UP: 1 YR 1 Year Follow-up (A letter has been sent to the patient regarding results of the study.) Dictated by: Vu Hagen MD 12/05/2020 14:31 Vu Hagen MD in [place] 12/05/2020 14:31
== END ==
PROVIDERS: PCP Internal Medicine; Visit Provider Internal Medicine
DX: Z12.31 Encounter for screening mammogram for malignant neoplasm of breast (principal)
CPT/HCPCS: 77063; 77067

== ENCOUNTER 2021-04-16 11:13 | Emergency (ER) | payer BC, SELFPAY ==
[2021-04-16 11:38] VITALS: BP 143/101; PULSE 107; RESP 19; TEMP 37; O2SAT 100; BMI 26.6
[2021-04-16 11:39] LABS: UTC Strep Screen (Rapid) Negative (Negative)
--- NOTE | 2021-04-16 11:51 | HMH.EDUTC ---
[facility] [place] Impression: Sinusitis Qualifiers: Sinusitis location: unspecified location Chronicity: unspecified Qualified Code(s): J32.9 - Chronic sinusitis, unspecified Disposition: Home, Self-Care Condition on Discharge: Good Instructions: Sinusitis, DI for Sinusitis, DI for COVID-19 (Suspected or Confirmed ) Additional Instructions: *Monitor Temp, Over the counter Motrin or Tylenol as directed/as needed Tylenol every 4 hours and Motrin every 6 hours (as long as your family doctor has told you that you can take it) for fever or pain. and straight to ER if unable to lower temp less than 101.0 after medication given *Warm salt water gargles may help to soothe the throat *Throat Lozenges *Warm fluids like tea with honey may help to soothe the throat *Sleep elevated *Humidifier/Vaporizer *Flonase 2 sprays in each nostril daily but be aware that it may take 2-3 days before you notice improvement Your throat swab was sent for culture. Those results are typically sent to your primary care. Be sure to follow up in 2-3 days with your family doctor/primary care physician if no improvement so they can review those result and treat if necessary. If you don?t have a primary care doctor, I recommend you get one but in the mean time, you will have to return to a walk in clinic Follow up IMMEDIATELY for new or worsening symptoms or no Noticeable improvement over the next 48-72 hours. 911 for difficulty breathing or swallowing You were tested for today for COVID19 your test result should be back in the next 24-48 hours, you may check your results online at the [facility] portal if you have trouble accessing your results you may call the [facility] You was given a handout with instructions for Self Quarantine and Self isolation for while you wait on test results and what to do if they are positive If you are positive the Health Dept will be contacting you also Make sure to take your Vitamins Vit. C Vit D and Zinc if you can take them Prescriptions: Fluticasone Propionate [Flonase 50mcg nasal spray 16gm] 1 spr NS DAILY #1 each Transmission Status: Pending to [facility] predniSONE [Prednisone 20mg Tab] 20 mg PO BID 5 Days #10 tab Transmission Status: Pending to [facility] Azithromycin [Z-Devyn 250mg Tab] 250 mg PO DIRECTED #6 tab Transmission Status: Pending to [facility] Referrals: Roddy Damon [Primary Care Provider] - As needed Forms: Work/School Release Time of Disposition: 12:01 Medical Decision Making - Huber Inquiry Pt receiving controlled substance: No Huber was queried for this patient: No Vital Signs: 04/16/21 11:38 Temperature 98.6 F Temperature Source Oral Pulse Rate [Left] 107 H Respiratory Rate 19 Blood Pressure [Right Arm] 143/101 H Blood Pressure Mean [Right Arm] 115 02 Sat by Pulse Oximetry 100 - Lab Data Lab results reviewed: Yes: I reviewed the patient's lab results. Lab Results 04/16/21 11:28: Strep Scn Rapid Clinic Negative Orders (Tests/Meds): ORDERS Category Date Time Status Covid-19 Nasal PCR ([facility]) Routine Lab 04/16/21 11:31 Received Full Resp Panel w/COVID ([facility]) Routine Lab 04/16/21 11:32 Received Strep Screen Confirmation Routine Micro 04/16/21 11:28 Received [facility] UTC HPI - General Stated complaint: covid symptoms Time Seen by Provider: 04/16/21 11:51 Mode of Arrival: Ambulatory Source of Information: Patient Limitations: No Limitations Description of Symptoms (Recalled from Triage Doc. by RN): pt c/o REAL, chills, sore throat, body aches and nausea since last night. HEENT Symptoms (Recalled from RN notes): Yes (REAL and sore throat) Resp Symptoms (Recalled from RN notes): No Skin Symptoms (Recalled from RN notes): No MS Symptoms (Recalled from RN notes): No Functional Status (Recalled from RN notes): body aches and chills - History of Present Illness Provider Complaint: Patient states she has been having sinus pressure and pain S
[2021-04-16 11:57] LABS: Adenovirus,PCR Not Detected (NotDetected); Bordetella Pertussis Not Detected (NotDetected); Chlamydophila Pneumoniae, PCR Not Detected (NotDetected); Coronavirus 19, PCR Not Detected (NotDetected); Coronavirus 229E Not Detected (NotDetected); Coronavirus NL63 Not Detected (NotDetected); Coronavirus OC43 Not Detected (NotDetected); Coronovirus HKU1,PCR Not Detected (NotDetected); Human Metapneumovirus Not Detected (NotDetected); Influenza A, PCR Not Detected (NotDetected); Influenza AH1, 2009 Not Detected (NotDetected); Influenza AH1, PCR Not Detected (NotDetected); Influenza AH3,PCR Not Detected (NotDetected); Influenza B, PCR Not Detected (NotDetected); Mycoplasma Pneumoniae, PCR Not Detected (NotDetected); Parainfluenza 1, PCR Not Detected (NotDetected); Parainfluenza 2, PCR Not Detected (NotDetected); Parainfluenza 3, PCR Not Detected (NotDetected); Parainfluenza 4, PCR Not Detected (NotDetected); Respiratory Syncytial Virus Not Detected (NotDetected); Rhinovirus/Enterovirus Not Detected (NotDetected)
[2021-04-16 12:38] VITALS: BP 143/101; PULSE 107; RESP 16; TEMP 37
== END 2021-04-16 12:38 | disposition home or self-care (01) ==
PROVIDERS: Emergency Provider Nurse Practitioner; PCP Internal Medicine
DX: J32.9 Chronic sinusitis, unspecified (principal); N28.9 Disorder of kidney and ureter, unspecified; K21.9 Gastro-esophageal reflux disease without esophagitis; F17.210 Nicotine dependence, cigarettes, uncomplicated
CPT/HCPCS: 87581; 87632; 87798; 87880; 99202; C9803; G0463; U0003; U0005

== ENCOUNTER 2021-09-26 11:20 | Emergency (ER) | payer BC, SELFPAY ==
[2021-09-26 11:26] VITALS: BMI 23.5
--- NOTE | 2021-09-26 12:08 | HMH.EDUTC ---
[facility] [place]ression: Low back pain Qualifiers: Chronicity: acute Back pain laterality: right Sciatica presence: with sciatica Sciatica laterality: sciatica of right side Qualified Code(s): M54.41 - Lumbago with sciatica, right side Low back strain Qualifiers: Encounter type: initial encounter Qualified Code(s): S39.012A - Strain of muscle, fascia and tendon of lower back, initial encounter Disposition: Home, Self-Care Condition on Discharge: Good Additional Instructions: Go home and rest. It would be best if you rested tomorrow too. No heavy lifting. No twisting. Take the oral medications as directed. The muscle relaxer (cyclobenzaprine--Flexeril) will make you drowsy, so don't drive or operate heavy machinery after taking it. Don't start the oral steroids (medrol dose pack) until tomorrow, since you had the shots in here today. Follow up with your regular doctor. GO TO THE ER FOR ANY WORSENING SYMPTOMS OR CONCERN, ESPECIALLY BOWEL OR BLADDER ISSUES, SADDLE AREA NUMBNESS, FEVER, ETC Prescriptions: Cyclobenzaprine HCl [Cyclobenzaprine 10mg Tab] 10 mg PO BIDP PRN #20 tab PRN Reason: Muscle Spasm Transmission Status: Received by [facility] methylPREDNISolone [Medrol] 4 mg PO DIRECTED 6 Days #21 packet Transmission Status: Received by [facility] Referrals: Roddy Damon [Primary Care Provider] - Time of Disposition: 12:45 Medical Decision Making - Medical Records Medical records reviewed: No: I reviewed the patient's medical records. - Huber Inquiry Pt receiving controlled substance: No Vital Signs: 09/26/21 12:09 09/26/21 12:21 Temperature 98.3 F 98.3 F Temperature Source Oral Pulse Rate 126 H Pulse Rate [Left] 126 H Respiratory Rate 18 18 Blood Pressure 125/97 H Blood Pressure [Right Arm] 125/97 H Blood Pressure Mean [Right Arm] 106 02 Sat by Pulse Oximetry 96 Orders (Tests/Meds): ED MEDICATIONS Discontinued Medications Generic Name Dose Route Start Last Admin Trade Name Freq PRN Reason Stop Dose Admin Methylprednisolone Sodium Succinate 125 mg 09/26/21 12:15 09/26/21 12:20 Methylprednisolone Sod Succ 125mg Vial IM 09/26/21 12:16 125 mg ONCE ONE Administration [facility] [place] - General Stated complaint: back pain Time Seen by Provider: 09/26/21 12:08 Mode of Arrival: Ambulatory Source of Information: Patient Limitations: No Limitations Description of Symptoms (Recalled from Triage Doc. by RN): Pt advises she was working in the yard yesterday and when she stood up she felt a catch in a her lower back on the left side. PT advises she is having some muscle spasms. She has taken 800mg of ibuprofen and has a lidocaine patch on. - History of Present Illness Provider Complaint: She states that for the past 1 day, she has had low back pain that radiates down her right leg at times. She has been working in her yard and she thinks that she has caused her low back pain to flare up. - Related Data Home Medications Medication Instructions Recorded Confirmed Tramadol HCl [Tramadol 50mg 50 mg PO BID 01/16/20 05/11/20 Tab] Previous Rx's Medication Instructions Recorded Ondansetron [Zofran 4mg ODT] 4 mg PO TIDP PRN #9 tab 05/03/20 Ondansetron [Zofran 4mg ODT] 4 mg PO Q8HP PRN #20 tab.rapdis 05/11/20 Oseltamivir Phosphate [Tamiflu 75 mg PO BID #10 cap 05/11/20 75mg Capsule] predniSONE [Prednisone 20mg 20 mg PO BID #10 tab 10/19/20 Tab] Azithromycin [Z-Devyn 250mg Tab] 250 mg PO DIRECTED #6 tab 04/16/21 Fluticasone Propionate [Flonase 1 spr NS DAILY #1 each 04/16/21 50mcg nasal spray 16gm] predniSONE [Prednisone 20mg 20 mg PO BID 5 Days #10 tab 04/16/21 Tab] Cyclobenzaprine HCl 10 mg PO BIDP PRN #20 tab 09/26/21 [Cyclobenzaprine 10mg Tab] methylPREDNISolone [Medrol] 4 mg PO DIRECTED 6 Days #21 09/26/21 packet Allergies Allergy/AdvReac Type Severity Reaction S
[2021-09-26 12:09] VITALS: BP 125/97; PULSE 126; RESP 18; TEMP 36.8; O2SAT 96; BMI 26.9
[2021-09-26 12:21] VITALS: BP 125/97; PULSE 126; RESP 18; TEMP 36.8
== END 2021-09-26 12:53 | disposition home or self-care (01) ==
LOC: ER 11:27 → UTC 11:28
PROVIDERS: Emergency Provider Nurse Practitioner Family; PCP Internal Medicine
DX: M54.41 Lumbago with sciatica, right side (principal); S39.012A Strain of muscle, fascia and tendon of lower back, initial encounter; K21.9 Gastro-esophageal reflux disease without esophagitis; E28.2 Polycystic ovarian syndrome; J45.909 Unspecified asthma, uncomplicated; F17.290 Nicotine dependence, other tobacco product, uncomplicated; Z79.1 Long term (current) use of non-steroidal anti-inflammatories (NSAID); Z79.51 Long term (current) use of inhaled steroids; Z79.52 Long term (current) use of systemic steroids; Z79.899 Other long term (current) drug therapy; Z88.0 Allergy status to penicillin
CPT/HCPCS: 96372; 99213; G0463

== ENCOUNTER → 2022-01-04 17:29 | Outpatient (CLI) | payer BC, SELFPAY | PROVIDERS: PCP Internal Medicine; Visit Provider Internal Medicine | DX: U07.1 COVID-19 (principal) | CPT/HCPCS: C9803; U0003; U0005 ==

== ENCOUNTER → 2022-03-05 08:23 | Outpatient (CLI) | payer BC, SELFPAY ==
--- NOTE | 2022-03-05 08:28 | MM_ITS ---
PROCEDURE INFORMATION: Exam: MG Bilateral Screening 3D Mammography Exam date and time: 03/05/2022 8:27 AM Age: 51 years old Clinical indication: Screening examination. No family history of breast cancer. TECHNIQUE: Imaging protocol: Bilateral Screening tomosynthesis and 2D mammography including computer-aided detection (CAD) when performed. COMPARISON: 1. MG MM DIG SCREENING MAMM BI W/CAD 12/05/2020 11:05 AM 2. MG [facility] MM Dig screening mamm BI w/CAD 06/23/2018 5:05 PM 3. MG DMSB DIG MAMM-SCREEN SOURAV W/CAD 04/07/2017 4:34 PM 4. MG DMSB DIG MAMM-SCREEN SOURAV 02/18/2016 4:28 PM FINDINGS: MAMMOGRAPHY: Breast composition: The breasts are heterogeneously dense, which may obscure small masses. Mass: No suspicious mass. Architectural distortion: None. Calcifications: No suspicious calcifications. Asymmetric density: None. Skin thickening: None. Axillary adenopathy: None. IMPRESSION: No mammographic evidence of malignancy. Annual screening is recommended unless otherwise clinically indicated. ASSESSMENT: BI-RADS Category 1: Negative
--- NOTE | 2022-03-05 08:30 | XR_ITS ---
FINAL REPORT TECHNIQUE: Bone mineral density was calculated of the lumbar spine and hip. CLINICAL HISTORY: Menopausal symptoms FINDINGS: DEXA BONE DENSITY AXIAL SKELETON Using L1-4, the bone mineral density of the spine is 1.264 g/cm2, corresponding to T-score of 2.0. Using the left hip, the bone mineral density of the femoral neck is 0.939 g/cm2, corresponding to a T-score of 0.0. NOTE: T-score: Standard deviation compared with peak bone mass of young adult mean. *Following the recommendations of the International Society of Bone densitometry, classification of hip BMD is based on the lower of two T-scores; total hip or femoral neck. IMPRESSION: Normal bone mineral density of the lumbar spine and hip. Reviewed, Interpreted and Dictated by Mark Zee III, MD Transcribed by Laly Boateng Authenticated and [facility]
== END ==
PROVIDERS: PCP Internal Medicine; Visit Provider Internal Medicine
DX: Z12.31 Encounter for screening mammogram for malignant neoplasm of breast (principal); N60.19 Diffuse cystic mastopathy of unspecified breast; Z13.820 Encounter for screening for osteoporosis; Z78.0 Asymptomatic menopausal state
CPT/HCPCS: 77063; 77067; 77080

== ENCOUNTER → 2022-05-05 11:37 | Outpatient (CLI) | payer BC, SELFPAY ==
[2022-05-05 11:53] LABS: Adenovirus,PCR Not Detected (NotDetected); Bordetella Pertussis Not Detected (NotDetected); Chlamydophila Pneumoniae, PCR Not Detected (NotDetected); Coronavirus 19, PCR Not Detected (NotDetected); Coronavirus 229E Not Detected (NotDetected); Coronavirus NL63 Not Detected (NotDetected); Coronavirus OC43 Not Detected (NotDetected); Coronovirus HKU1,PCR Not Detected (NotDetected); Human Metapneumovirus Not Detected (NotDetected); Influenza A, PCR Not Detected (NotDetected); Influenza AH1, 2009 Not Detected (NotDetected); Influenza AH1, PCR Not Detected (NotDetected); Influenza AH3,PCR Not Detected (NotDetected); Influenza B, PCR Not Detected (NotDetected); Mycoplasma Pneumoniae, PCR Not Detected (NotDetected); Parainfluenza 1, PCR Not Detected (NotDetected); Parainfluenza 2, PCR Not Detected (NotDetected); Parainfluenza 3, PCR Not Detected (NotDetected); Parainfluenza 4, PCR Not Detected (NotDetected); Respiratory Syncytial Virus Not Detected (NotDetected); Rhinovirus/Enterovirus Not Detected (NotDetected)
== END ==
PROVIDERS: PCP Internal Medicine; Visit Provider Internal Medicine
DX: Z20.822 Contact with and (suspected) exposure to COVID-19 (principal)
CPT/HCPCS: 87581; 87632; 87798; C9803; U0003; U0005

== ENCOUNTER → 2022-09-20 07:41 | Outpatient (CLI) | payer BC, SELFPAY ==
[2022-09-20 08:06] LABS: Microscopic, Urine URINE MICROSCOPIC (MICROSCOPIC)
[2022-09-20 08:36] LABS: Basophils # 0.1 K/mm3 (0-0.2); Basophils % 1.2 % (0.1-2.0); Eosinophils # 0.1 K/mm3 (0.0-0.4); Eosinophils % 1.9 % (0.1-12.0); Hematocrit 39.5 % (37.0-47.0); Hemoglobin 12.2 g/dL (12.2-16.2); Lymphocytes # 1.6 K/mm3 (0.7-4.5); Lymphocytes % 29.2 % (10-50); Mean Corpuscular Hemoglobin 27.5 pg (27.0-31.2); Mean Corpuscular Volume 88.7 fl (81-99); Mean Platelet Volume 7.1 fl (7.4-10.4); Monocytes # 0.4 K/mm3 (0.1-1.0); Monocytes % 7.8 % (1.7-9.3); Neutrophils # 3.2 K/mm3 (1.8-7.8); Platelet Count 321 K/mm3 (142-424); Red Blood Count 4.45 M/mm3 (4.20-5.40); White Blood Count 5.4 K/mm3 (4.8-10.8)
[2022-09-20 08:37] LABS: Appearance,Urine CLEAR (Clear); Bilirubin,Urine Negative (Negative); Blood, Urine Negative (Negative); Color,Urine YELLOW (Yellow); Glucose,Urine (UA) Negative (Negative); Ketones,Urine Negative (Negative); Leukocyte Esterase,Urine 1+ (Negative); Nitrate,Urine Negative (Negative); PH,Urine 6.5 (5.0-8.5); Protein,Urine Negative (Negative); Urobilinogen,Urine 0.2 EU/dl (0.2)
[2022-09-20 09:07] LABS: Bacteria,Urine Trace /lpf; RBC,Urine Occasional #/hpf (0-3)
[2022-09-20 09:12] LABS: Erythrocyte Sedimentation Rate 20 mm/hr (0-20)
[2022-09-20 09:17] LABS: Alanine Aminotransferase 76 U/L (12-78); Albumin Level 4.1 g/dl (3.5-5.0); Albumin/Globulin Ratio 1.8 (1.1-1.8); Alkaline Phosphatase 72 U/L (38-126); Anion Gap 9.4 mEq/L (5-15); Aspartate Amino Transferase 106 U/L (14-36); Bilirubin,Total 0.2 mg/dl (0.2-1.3); Calcium 8.8 mg/dl (8.4-10.2); Carbon Dioxide 30 mmol/L (22.0-30.0); Chloride 104 mmol/L (98-107); Chol/HDL Ratio 3.4 (1-3.5); Cholesterol 194 mg/dl (140-200); Globulin 2.3 g/dL (1.3-3.2); Glucose 97 mg/dl (74-100); HDL Cholesterol 57 mg/dl (40-60); Magnesium 2.1 mg/dl (1.6-2.3); Potassium 4.4 mmoL/L (3.5-5.1); Sodium 139 mmol/L (136-145); Total Protein,Serum 6.4 g/dl (6.3-8.2); Triglycerides 96 mg/dl (30-150); VLDL Cholesterol 19 mg/dL (0-40)
[2022-09-20 09:21] LABS: Blood Urea Nitrogen 15 mg/dl (7-17); Estimated Glomerular Filt Rate 106 ml/min (>60); GFR (African American) 128 ML/MIN (>60)
[2022-09-20 09:31] LABS: Free T4 (Free Thyroxine) 0.65 ng/dl (0.78-2.19)
[2022-09-20 09:39] LABS: Direct LDL Cholesterol 93.36 mg/dL (100-129)
[2022-09-20 09:46] LABS: Thyroid Stimulating Hormone 1.57 uIU/mL (0.465-4.68)
[2022-09-20 10:23] LABS: Creatine Kinase 2881 U/L (30-135)
[2022-09-21 12:14] LABS: Anti-Centromere B Antibodies <0.2 AI (0.0-0.9); Anti-DNA (DS) Ab Qn 1 IU/mL (0-9); Anti-Jo-1 <0.2 AI (0.0-0.9); Anti-Smith Antibody <0.2 AI (0.0-0.9); Antichromatin Antibodies <0.2 AI (0.0-0.9); Antiscleroderma-70 Antibodies <0.2 AI (0.0-0.9); RNP Antibodies <0.2 AI (0.0-0.9); Sjogren's Anti-SS-A <0.2 AI (0.0-0.9); Sjogren's Anti-SS-B <0.2 AI (0.0-0.9)
== END ==
PROVIDERS: PCP Internal Medicine; Visit Provider Internal Medicine
DX: R53.83 Other fatigue (principal); E78.5 Hyperlipidemia, unspecified; G72.89 Other specified myopathies; I49.3 Ventricular premature depolarization; M19.90 Unspecified osteoarthritis, unspecified site
CPT/HCPCS: 36415; 80053; 80061; 81001; 82550; 83735; 84439; 84443; 85025; 85651; 86225; 86235; 87086

== ENCOUNTER 2023-03-22 08:42 | Emergency (ER) | payer BC, SELFPAY ==
[2023-03-22 09:10] VITALS: BP 134/92; PULSE 112; RESP 18; TEMP 37.1; O2SAT 96; BMI 25.0
--- NOTE | 2023-03-22 09:22 | EXP.UTC ---
Discharge Plan Disposition Patient Disposition: Home, Self-Care Condition: Good Prescriptions Prescriptions: New azithromycin [Zithromax] 250 mg tablet 250 mg PO UD DOSE PK Qty: 6 0RF Rx Instructions: Take two (2) tablets today, then one (1) tablet days #2 thru #5 benzonatate [benzonatate] 100 mg capsule 100 mg PO TIDP PRN (Reason: Cough) Qty: 30 0RF ondansetron 4 mg Tablet,Disintegrating 4 mg PO Q8H PRN (Reason: Nausea) Qty: 12 0RF No Action tramadol 50 MG tablet 50 mg PO BID Referrals Follow up/Referrals: Roddy Damon MD [Primary Care Provider] - See instructions Activity Restrictions/Add. Instructions Additional Instructions/Restrictions: Drink plenty of fluids. Take tylenol or ibuprofen for pain or fever. Take the medications as directed. Follow up with your regular doctor. GO TO THE ER FOR ANY WORSENING SYMPTOMS Clinical Impressions Clinical Impression: Acute viral syndrome, Sinusitis Stand Alone Forms Stand Alone Forms: Work/School Release Instructions Patient Instructions: DI for Sinusitis, DI for Viral Syndrome Discharge ED Provider: Vu Desai [facility] General Stated complaint: sinus pressure,fever,sore throat Time Seen by Provider: 03/22/23 09:22 History of Present Illness Provider Complaint: She states that since last night she has had body aches, chills, fever, sore throat, and sinus congestion. Related Data Home Medications Medication Instructions Recorded Confirmed tramadol 50 mg tablet 50 mg PO BID Pain 01/16/20 03/22/23 Previous Rx's Medication Instructions Recorded azithromycin 250 mg tablet 250 mg PO UD DOSE PK #6 tabs 03/22/23 (Zithromax) benzonatate 100 mg capsule 100 mg PO TIDP PRN Cough #30 caps 03/22/23 ondansetron 4 mg disintegrating 4 mg PO Q8H PRN Nausea #12 tabs 03/22/23 tablet Allergies Allergy/AdvReac Type Severity Reaction Status Date / Time Penicillins Allergy Verified 03/22/23 09:37 [facility] Disclaimer: The information contained in this section may have been updated after the patient was seen, as this information can be updated by other users. Social History Smoking Status: Current every day smoker tobacco type: e-cigarettes alcohol intake: never substance use type: denies use current occupational status: employed Travel in the last 8 weeks: None household members: spouse housing: house current occupational exposures/hazards: No caffeine: Yes ROS Obtained: Yes All systems reviewed & no additional complaints except as documented Constitutional Constitutional: Reports poor appetite Eyes Eyes: Reports system reviewed and no additional complaints, except as documented ENT Ears, Nose, Mouth, and Throat: Reports as per HPI Cardiovascular Cardiovascular: Reports system reviewed and no additional complaints, except as documented and Denies chest pain Respiratory Respiratory: Denies shortness of breath, Denies chest congestion, Reports cough, Denies stridor and Denies wheezing Gastrointestinal Gastrointestingal: Reports system reviewed and no additional complaints, except as documented; Denies abdominal pain, diarrhea or vomiting Musculoskeletal Musculoskeletal: Reports system reviewed and no additional complaints, except as documented and Denies arthralgias Integumentary/Breasts Skin/Breast: Reports system reviewed and no additional complaints, except as documented and Denies rash Neurologic Neurologic: Denies paresthesias Allergic/Immunologic Allergic/Immunologic: Denies wheezing Physical Exam General General appearance: alert and in no apparent distress Eye Eye exam: Present normal appearance, PERRL and EOMI ENT ENT exam: Present mucous membranes moist and normal external ear exam Expanded ENT Exam External ear exam: Present normal external inspection TM/Canal exam: Bilateral TM: erythema and bulging Nose exam: Absent s
[2023-03-22 09:36] LABS: UTC Strep Screen (Rapid) Negative (Negative)
[2023-03-22 10:20] VITALS: BP 134/92; PULSE 112; RESP 18; TEMP 37.1; O2SAT 96
== END 2023-03-22 10:20 | disposition home or self-care (01) ==
PROVIDERS: Emergency Provider Nurse Practitioner Family; PCP Internal Medicine
DX: J01.90 Acute sinusitis, unspecified (principal); B34.9 Viral infection, unspecified; F17.290 Nicotine dependence, other tobacco product, uncomplicated
CPT/HCPCS: 87635; 87880; 96372; 99212; 99214; G0463

== ENCOUNTER 2024-03-26 13:30 | Outpatient (CLI) | payer BC, SELFPAY ==
--- NOTE | 2024-03-26 13:34 | XR_ITS ---
FINAL REPORT CLINICAL HISTORY: Right hip pain, joint catching COMPARISON: None FINDINGS: RIGHT HIP 3 views of the right hip demonstrate no acute fracture or dislocation. Mild to moderate degenerative changes noted in the hips bilaterally. The visualized bony structures are well aligned. No soft tissue abnormality is seen. IMPRESSION: Mild to moderate degenerative change without acute bony abnormality. Reviewed, Interpreted and Dictated by Mark Zee III, MD Transcribed by Petrona Koch Authenticated and [facility]
== END 2024-03-26 23:59 | disposition home or self-care (01) ==
LOC: RAD 13:31
PROVIDERS: PCP Internal Medicine; Visit Provider Internal Medicine
DX: M25.551 Pain in right hip (principal)
CPT/HCPCS: 73502

== ENCOUNTER 2024-06-18 16:55 | Outpatient (CLI) | payer BC, SELFPAY ==
--- NOTE | 2024-06-18 16:56 | MM_ITS ---
PROCEDURE INFORMATION: Exam: MG Bilateral Screening 3D Mammography Exam date and time: 06/18/2024 4:43 PM Age: 53 years old Clinical indication: Screening examination. TECHNIQUE: Imaging protocol: Bilateral Screening tomosynthesis and 2D mammography including computer-aided detection (CAD) when performed. COMPARISON: 1. MG MM DIG SCREENING MAMM BI W/CAD 03/05/2022 8:27 AM 2. MG MM DIG SCREENING MAMM BI W/CAD 12/05/2020 11:05 AM FINDINGS: MAMMOGRAPHY: Breast composition: The breasts are heterogeneously dense, which may obscure small masses. Mass: None. Architectural distortion: None. Calcifications: No suspicious calcifications. Asymmetric density: None. Skin thickening: None. Axillary adenopathy: None. IMPRESSION: No mammographic evidence of malignancy. Annual screening is recommended unless otherwise clinically indicated. ASSESSMENT: BI-RADS Category 1: Negative.
== END 2024-06-18 23:59 | disposition home or self-care (01) ==
LOC: RAD 16:56
PROVIDERS: PCP Internal Medicine; Visit Provider Internal Medicine
DX: Z12.31 Encounter for screening mammogram for malignant neoplasm of breast (principal)
CPT/HCPCS: 77063; 77067